=== PATIENT | male | born 1960 | race Caucasian/White ===

== ENCOUNTER 2016-11-23 14:44 | Emergency (ER) | payer MEDICAID ==
[~2016-11-23] VITALS: Ht 175.3 cm; Wt 68.0 kg
[2016-11-23 14:55] VITALS: BP 130/78
[2016-11-23 19:45] VITALS: BP 130/78
--- NOTE | 2016-11-23 20:53 | Emergency Room Report ---
History of Present Illness General Chief Complaint: Alcohol Intoxication Source: EMS Present Illness HPI The patient is a 56-year-old male brought in by EMS for alcohol intoxication. The patient does not provide any helpful information at this time and is being verbally aggressive. He denies any complaints Allergies: Coded Allergies: MORPHINE (Verified Allergy, Unknown, 10/08/15) Patient History Past Medical History: see triage record Pertinent Family History: none Social History: Reports: alcohol use Reviewed Nursing Documentation: PMH: Agreed, PSxH: Agreed Nursing Documentation-PMH Past Medical History: No History, Except For Hx Diabetes: Yes Review of Systems All Other Systems: limited Physical Exam Vital Signs Date Time Temp Pulse Resp B/P (MAP) Pulse Ox O2 Delivery O2 Flow Rate FiO2 11/23/16 14:40 97.9 108 16 130/78 99 Room Air Sp02 EP Interpretation: reviewed, normal General Appearance: no apparent distress, alert, GCS 15, non-toxic Head: normocephalic, atraumatic Eyes: bilateral eye normal inspection, bilateral eye PERRL ENT: hearing grossly normal, normal pharynx, no angioedema, normal voice Respiratory: chest non-tender, lungs clear, normal breath sounds, speaking full sentences Cardiovascular #1: regular rate, rhythm, no edema Musculoskeletal: back normal, gait/station normal, normal range of motion Neurologic: alert, responsive, sensory intact Psychiatric: depressed affect Skin: normal color, no rash, warm/dry, well hydrated Medical Decision Making PA Attestation Dr. Beckman is my supervising physician. Patient management was discussed with my supervising physician Diagnostic Impression: Primary Impression: Acute alcoholic intoxication Qualified Codes: F10.929 - Alcohol use, unspecified with intoxication, unspecified ER Course The patient is a 56-year-old male brought in by EMS for alcohol intoxication. DDx considered but not limited to: acute alcohol intoxication, hepatic encephalopathy, drug overdose, hypoglycemia, psychosis Physical exam: Vitals are within normal limits. No apparent distress. Patient is lethargic. Head is normocephalic atraumatic. Pupils are equally round and reactive to light The patient is arousable by touch or name. Lungs are clear to auscultation bilaterally. No abnormal tenderness. Abdomen is soft. Otherwise exam is unremarkable The patient is given time to rest in the emergency department. Upon reevaluation, patient is to drinking alcohol. Patient refuses to say what/ how many. The patient is able to ambulate well and is asking to leave at this time. The patient is alert and oriented. The patient be discharged home and given ER precautions. Patient was given advice on alcohol addiction Last Vital Signs Date Time Temp Pulse Resp B/P (MAP) Pulse Ox O2 Delivery O2 Flow Rate FiO2 11/23/16 19:45 97.9 82 16 130/78 100 Room Air Status: improved Disposition: HOME, SELF-CARE Condition: Improved Referrals: [facility],REFERRING (PCP) Patient Instructions: Alcohol Intoxication Additional Instructions: My findings were discussed with the patient. Patient was counseled to seek help for alcohol abuse. Patient is stable for discharge, is alert and oriented, and can ambulate without difficulty. Patient is asked to return to ED if he experiences chest pain, abdominal pain, dizziness, falls down, or for any reason. LOYD ORO Nov 23, 2016 20:53
== END 2016-11-23 20:23 | disposition home or self-care (01) ==
LOC: EDBD 14:44 → EMR 15:12
DX: F10.129 Alcohol abuse with intoxication, unspecified (principal); E11.9 Type 2 diabetes mellitus without complications; Z88.6 Allergy status to analgesic agent
CPT/HCPCS: 99282